=== PATIENT | female | born 1935 | race Caucasian/White ===

== ENCOUNTER → 2016-06-07 | Outpatient (CLI) | payer MEDICARE ==
[2016-06-07 10:44] LABS: Basophils % (A) 1 %; CH 32.2; CHCM 32.4; Eosinophils % (A) 1 %; HCT 44.4 % (34.0-46.0); HGB 14.3 gm/dL (11.4-16.0); Luc # (Auto) 0.14; Luc % (Auto) 3; Lymphocytes # (A) 1.4 k/uL (1.0-4.8); Lymphocytes % (A) 26 %; MCH 32.1 pg (25.0-35.0); MCHC 32.1 g/dL (31.0-37.0); MCV 99.8 fL (80.0-100.0); Mean Platelet Volume 8.6; Monocytes # (A) 0.4 k/uL (0-1.0); Monocytes % (A) 8 %; Neutrophils # (A) 3.2 k/uL (1.3-7.7); Neutrophils % (A) 61 %; RBC 4.45 m/uL (3.80-5.40); RDW 13.8 % (11.5-15.5); WBC 5.2 k/uL (3.8-10.6); WBC (Perox) 5.32
[2016-06-07 11:23] LABS: ALT 27 U/L (9-52); AST 21 U/L (14-36); Alkaline Phosphatase 74 U/L (38-126); Anion Gap 13 mmol/L; Blood Urea Nitrogen 18 mg/dL (7-17); Calcium 9.4 mg/dL (8.4-10.2); Carbon Dioxide 27 mmol/L (22-30); Chloride 99 mmol/L (98-107); Glucose 105 mg/dL (74-99); Non-African American GFR(MDRD) >60 (>60 ml/min/1.73 sqM); Potassium 4.4 mmol/L (3.5-5.1); Sodium 139 mmol/L (137-145); Total Bilirubin 0.7 mg/dL (0.2-1.3); Total Protein 7.4 g/dL (6.3-8.2)
== END | disposition home or self-care (01) ==
LOC: LABWHC1 10:16
PROVIDERS: ATTEND Physician Assistant
DX: E03.9 Hypothyroidism, unspecified (principal); E78.5 Hyperlipidemia, unspecified
CPT/HCPCS: 36415; 80053; 83704; 84439; 84443; 84481; 85025

== ENCOUNTER → 2016-06-19 | Outpatient (CLI) | payer MEDICARE ==
--- NOTE | 2016-06-19 15:13 | XR ---
EXAMINATION TYPE: XR chest 2V DATE OF EXAM: 06/19/2016 3:04 PM COMPARISON: NONE HISTORY: Dyspnea and shortness of breath. TECHNIQUE: Frontal and lateral views of the chest are obtained. FINDINGS: There is chronic emphysematous change without suspicious focal air space opacity or pneumo thorax seen. There is blunting of posterior costophrenic angles suggesting tiny bilateral pleural eff usions The cardiac silhouette size is enlarged, left ventricular dilatation is suspected on lateral v iew. There is atherosclerotic and slightly ectatic thoracic aorta. The osseous structures are deminer alized. There is mild to moderate compression type fracture deformity at roughly L1 level on lateral view presumed chronic. IMPRESSION: Suspect CHF exacerbation as there is cardiomegaly with tiny bilateral pleural effusions, clinical correlation advised. Background of chronic emphysematous change is suspected.
--- NOTE | 2016-06-19 15:27 | US ---
EXAMINATION TYPE: US venous doppler duplex LE DATE OF EXAM: 06/19/2016 2:51 PM COMPARISON: NONE CLINICAL HISTORY: R60.0 EDEMA LOWER EXTREMITY. Bilateral leg swelling x 2 months SIDE PERFORMED: Bilateral TECHNIQUE: The lower extremity deep venous system is examined utilizing real time linear array sonog aline with graded compression, doppler sonography and color-flow sonography. VESSELS IMAGED: External Iliac Vein (EIV) Common Femoral Vein Deep Femoral Vein Greater Saphenous Vein * Femoral Vein Popliteal Vein Small Saphenous Vein * Proximal Calf Veins (* superficial vessels) Right Leg: Appears negative for DVT Left Leg: Appears negative for DVT Grayscale, color doppler, spectral doppler imaging performed of the deep veins of the lower extremiti es. There is normal flow, compressibility, vascular waveforms bilaterally IMPRESSION: No ultrasound evidence for acute DVT in either lower extremity.
--- NOTE | 2016-06-20 09:39 | ECHOF ---
Referral Reason:R06 DYSPNEA MEASUREMENTS -------- HEIGHT: 162.6 cm WEIGHT: 77.6 kg BP: IVSd: 1.1 cm (0.6 - 1.1) LVIDd: 3.6 cm (3.9 - 5.3) LVPWd: 1.1 cm (0.6 - 1.1) IVSs: 1.6 cm LVIDs: 2.8 cm LVPWs: 1.6 cm Ao Diam: 3.4 cm (2.0 - 3.7) AV Cusp: 1.6 cm (1.5 - 2.6) LA Diam: 3.2 cm (2.7 - 3.8) MV EXCURSION: 14.382 mm (> 18.000) MV EF SLOPE: 49 mm/s (70 - 150) EPSS: 0.6 cm MV E Jefferson: 0.81 m/s MV DecT: 125 ms MV A Jefferson: 0.77 m/s MV E/A Ratio: 1.05 RAP: 5.00 mmHg RVSP: 19.79 mmHg FINDINGS -------- Sinus rhythm with extra systolic beats. Very TDS. No apicals,views takin from subcoastals. Left ventricular wall thickness is normal. Overall left ventricular systolic function is normal with, an EF between 55 - 60 %. The right ventricle is normal in size and function. The left atrium is normal in size. The right atrium is normal in size. The aortic valve is trileaflet, and appears structurally normal. No aortic stenosis or regurgitation. There is trace mitral regurgitation. Trace tricuspid regurgitation present. The right ventricular systolic pressure, as measured by Doppler, is 19.79mmHg. Pulmonic valve appears structurally normal. The aortic root size is normal. There is a small, generalized pericardial effusion present. CONCLUSIONS -------- 1. Sinus rhythm with extra systolic beats. 2. Trace tricuspid regurgitation present. 3. The right ventricular systolic pressure, as measured by Doppler, is 19.79mmHg. 4. Pulmonic valve appears structurally normal. 5. The aortic root size is normal. 6. There is a small, generalized pericardial effusion present. 7. Very TDS. No apicals,views takin from subcoastals. 8. Left ventricular wall thickness is normal. 9. Overall left ventricular systolic function is normal with, an EF between 55 - 60 %. 10. The right ventricle is normal in size and function. 11. The left atrium is normal in size. 12. The right atrium is normal in size. 13. The aortic valve is trileaflet, and appears structurally normal. No aortic stenosis or regurgitation. 14. There is trace mitral regurgitation. UNDERWEAR CUTTER: Jelena Domingo RDCS
== END | disposition home or self-care (01) ==
LOC: RADUSMAIN 14:11
PROVIDERS: ATTEND Family Medicine
DX: I08.1 Rheumatic disorders of both mitral and tricuspid valves (principal); I31.3 Pericardial effusion (noninflammatory); R60.0 Localized edema; I51.7 Cardiomegaly; J90 Pleural effusion, not elsewhere classified
CPT/HCPCS: 71020; 93306; 93970

== ENCOUNTER 2017-03-20 06:32 | Day surgery (SDC) | payer MEDICARE ==
[2017-03-09 14:55] VITALS: BMI 29.3
[~2017-03-20 06:32] MED LIST: LACTATED RINGERS 1,000 ML IV SCH; LIDOCAINE 1% 20 ML VIAL (10MG/ML) FOR IV START INTRADERMA PRN; ONDANSETRON 4 MG/2 ML VIAL IVP ONE
[2017-03-20] MEDS: CYCLOPENTOLATE 1% OPHTH SOLN 2 ML BTL OP ONE ×3 (07:03→07:19)
[2017-03-20] MEDS: PHENYLEPHRINE 10% OPHTH DROPS 5 ML BTL OP ONE ×3 (07:06→07:23)
[2017-03-20] MEDS: FLURBIPROFEN 0.03% OPHTH DROPS 2.5 ML BTL OP ONE ×2 (07:09→07:26)
[2017-03-20] MEDS ORDERED: PROPOFOL 10 MG/ML 20 ML VIAL IV ONE (08:18)
[2017-03-20] MEDS ORDERED: TIMOLOL 0.5% OPHTH SOLN (PF) 0.2 ML DROPERETTE LEFT EYE ONE (08:21)
[2017-03-20] MEDS ORDERED: HYALURONATE SODIUM INTRAOCULAR 1 EACH SYRINGE (10MG/ML) INTRAOCULA ONE (08:23)
[2017-03-20] MEDS ORDERED: BALANCED SALT IRRIG SOLN COMB2 15 ML IRRIG.SOLN INTRAOCULA ONE (08:23)
[2017-03-20] MEDS ORDERED: EPINEPHrine (PF) 0.5 ML in BALANCED SALT IRRIG SOLN COMB2 500 ML IRRIGATION ONE (08:25)
--- NOTE | 2017-03-20 08:44 | P.OP ---
Date of Procedure: 03/20/17 Procedure(s) Performed: PREOPERATIVE DIAGNOSIS: Cataract and miosis, left eye. POSTOPERATIVE DIAGNOSIS: Cataract and miosis, left eye. OPERATION: Phacoemulsification cataract, left eye. DESCRIPTION OF PROCEDURE: The patient was taken to the preoperative holding area. Intravenous Propofol was given so as to bring about adequate sedation. The following mixture was given for local anesthesia: 5 mL of 2% lidocaine, 5 mL of 0.75% Marcaine, and 1 mL of Wydase. Approximately 4 mL was injected in the retrobulbar space of the surgical eye. Additional 1 mL was then directed to the temporal area of the surgical eye. This was performed to allow adequate neurological block of the facial muscles. The patient was revived and then taken into the operative room. The patient was prepped and draped in the usual sterile manner for the operative eye. A lid speculum was put into position. The conjunctiva was resected back from the limbus in the 12 o'clock position. Bleeding was controlled with electrocautery. A #69 blade was then used and a half-thickness scleral incision approximately 1-mm posterior to the limbus was made on bare sclera. This was shelved in the clear cornea using a crescent knife. Next a 15-degree blade was used to make a stab incision at the 3 o' clock position at the corneolimbal interface. Keratome blade was then used and the superior wound was extended into the anterior chamber. Viscoelastic was injected into the anterior chamber and to maintain its form. A Maluygin ring was injected and the pupil was stretched into position. Next, a cystotome was used and a continuous anterior capsulotomy was made without difficulty. Hydrodissection using a blunt cannula and BSS was performed. Phaco probe was then employed and a groove extending from 12 to 6 o'clock in the lens was created. A Nicola wand was used through the stab incision so as to perform a divide and conquer technique. Next an irrigation aspiration probe was utilized and any residual cortex was removed from the eye. Again, viscoelastic was injected into the anterior chamber. An Matthew posterior chamber lens implant was placed in the cartridge and injected into the anterior chamber without difficulty. The Sinskey hook was utilized to spin the lens into position and this was again performed without any difficulty. The Maluygin ring was removed from the eye. The irrigation and aspiration probe was again employed and any residual viscoelastic was removed from the eye. Then BSS was injected into the limbal stab incision and the anterior chamber re- inflated. The conjunctiva was reapproximated using electrocautery. One drop of 0.25% Timoptic was placed over the corneal along with TobraDex ophthalmic ointment. Two sterile patches and a Benz eye shield were taped into position. The patient was transported to the recovery room in stable condition. Pathology: none sent Condition: stable Disposition: same day
[2017-03-20 08:48] VITALS: RESP 16
[2017-03-20 09:05] VITALS: BP 167/86; PULSE 77
[2017-03-20] MEDS ORDERED: GENTAMICIN/PREDNISOL AC OPHTH OINT 3.5GM OPHTHALMIC ONE (23:00)
[2017-03-20] MEDS ORDERED: BUPIVACAINE (PF) 0.75% 5 ML, HYALURONIDASE, HUMAN RECOMB 150 UNIT, LIDOCAINE 2% (PF) 10... MISCELLANE ONE ×3 (23:00)
[2017-03-20] MEDS ORDERED: TIMOLOL 0.5% OPHTH SOLN (PF) 0.2 ML DROPERETTE OP ONE (23:00)
== END 2017-03-20 09:19 | disposition home or self-care (01) ==
LOC: OR 06:32
PROVIDERS: ATTEND Ophthalmology
DX: H26.9 Unspecified cataract (principal); H57.03 Miosis; I10 Essential (primary) hypertension; K21.9 Gastro-esophageal reflux disease without esophagitis; R06.02 Shortness of breath; E07.9 Disorder of thyroid, unspecified; Z79.899 Other long term (current) drug therapy
CPT/HCPCS: 66984; V2632; J3470; J2001; J0171; J2704

== ENCOUNTER → 2017-09-19 | Outpatient (CLI) | payer MEDICARE ==
[2017-09-19 11:15] LABS: Albumin 4.1 g/dL (3.5-5.0); Calcium 9.2 mg/dL (8.4-10.2); Potassium 4.6 mmol/L (3.5-5.1); Total Bilirubin 0.4 mg/dL (0.2-1.3); Total Protein 6.6 g/dL (6.3-8.2)
== END | disposition home or self-care (01) ==
LOC: LABWHC1 10:08
PROVIDERS: ATTEND Internal Medicine Interventional Cardiology
DX: E78.2 Mixed hyperlipidemia (principal); R06.09 Other forms of dyspnea
CPT/HCPCS: 36415; 80053; 80061; 83880

== ENCOUNTER → 2019-12-24 | Outpatient (CLI) | payer MEDICARE ==
[2019-12-24 12:49] LABS: Basophils % (A) 0 %; Eosinophils % (A) 1 %; HCT 41.8 % (34.0-46.0); HGB 13.3 gm/dL (11.4-16.0); Lymphocytes # (A) 1.2 k/uL (1.0-4.8); Lymphocytes % (A) 23 %; MCH 32.2 pg (25.0-35.0); MCHC 31.8 g/dL (31.0-37.0); MCV 101.2 fL (80.0-100.0); Mean Platelet Volume 9.6; Monocytes # (A) 0.4 k/uL (0-1.0); Monocytes % (A) 8 %; Neutrophils # (A) 3.4 k/uL (1.3-7.7); Neutrophils % (A) 65 %; Platelet Count 162 k/uL (150-450); RBC 4.13 m/uL (3.80-5.40); RDW 12.5 % (11.5-15.5); WBC 5.3 k/uL (3.8-10.6)
[2019-12-24 20:28] LABS: African American GFR (CKD) 59.1 (60.0-200.0); Albumin 4.4 g/dL (3.80-4.90); Albumin/Globulin Ratio 1.83 (1.60-3.17); Anion Gap 9.4 mmol/L (4.00-12.00); Calcium 9.4 mg/dL (8.7-10.3); Carbon Dioxide 27.6 mmol/L (21.6-31.8); Chol/HDL Ratio 2.82; Globulin 2.4 g/dL (1.6-3.3); LDL Cholesterol,Calculated 103.4 mg/dL (0.0-131.0); Potassium 5.3 mmol/L (3.5-5.5); Total Bilirubin 0.6 mg/dL (0.2-1.2); Total Protein 6.8 g/dL (6.2-8.2); VLDL Calculation 29.6 mg/dL (5.00-40.00)
[2019-12-24 20:36] LABS: T4, Free (Free Thyroxine) 1.8 ng/dL (0.80-1.80)
== END ==
LOC: LABWHC1 11:41
PROVIDERS: ATTEND Family Medicine
DX: E78.5 Hyperlipidemia, unspecified (principal); E03.9 Hypothyroidism, unspecified
CPT/HCPCS: 36415; 80053; 80061; 84439; 84443; 84481; 85025

== ENCOUNTER → 2021-07-12 | Outpatient (CLI) | payer MEDICARE ==
--- NOTE | 2021-07-12 16:48 | XR ---
EXAMINATION TYPE: XR chest 2V DATE OF EXAM: 07/12/2021 COMPARISON: 06/19/2016 HISTORY: 86-year-old female R06.09, dyspnea, shortness of breath TECHNIQUE: Frontal and lateral views FINDINGS: The heart is enlarged especially the left atrium which is distended back to project over the her aspe ct of the spine. Aorta and pulmonary vasculature within normal limits. Hyperinflation. Trace pleural effusions redemonstrated. Stable anterior wedge deformity near the thoracolumbar junction. There appe ars to be a calcified oil cyst within the breast on the lateral view. Unusual vertical lucency involv ing the inferior aspect of these right scapula. IMPRESSION: 1. Left atrial dilatation apparent on the lateral view. 2. COPD. Blunted costophrenic angles remain unchanged from 2017. This could be secondary to trace eff usions or pleural parenchymal scarring. 3. Vertically oriented lucency inferior right scapula could be projectional artifact. Correlate for a ny history of injury or focal pain here.
== END | disposition home or self-care (01) ==
LOC: RADXRMAIN 08:37
PROVIDERS: ATTEND Family Medicine
DX: I51.7 Cardiomegaly (principal); J44.9 Chronic obstructive pulmonary disease, unspecified
CPT/HCPCS: 71046

== ENCOUNTER → 2022-08-07 | Outpatient (CLI) | payer MEDICARE | END | disposition home or self-care (01) | LOC: LABPAT 10:09 | PROVIDERS: ATTEND Orthopaedic Surgery | DX: Z01.812 Encounter for preprocedural laboratory examination (principal); Z22.322 Carrier or suspected carrier of Methicillin resistant Staphylococcus aureus; M16.12 Unilateral primary osteoarthritis, left hip | CPT/HCPCS: 87070 ==

== ENCOUNTER → 2022-08-11 | Outpatient (CLI) | payer MEDICARE ==
[2022-08-11 15:42] LABS: Basophils # (A) 0.02 X 10*3/uL (0.00-0.10); Basophils % (A) 0.4 %; Eosinophils # (A) 0.04 X 10*3/uL (0.04-0.35); Eosinophils % (A) 0.7 %; HCT 39.6 % (37.2-46.3); HGB 12.3 d/dL (12.0-15.0); Lymphocytes % (A) 24.9 %; MCH 31.5 pg (27.0-32.0); MCHC 31.1 d/dL (32.0-37.0); MCV 101.3 FL (80.0-97.0); Monocytes % (A) 10.7 %; NRBC Per 100 WBC 0 X 10*3/uL (0.00-0.01); Neutrophils # (A) 3.49 X 10*3/uL (1.80-7.70); Neutrophils % (A) 62.1 %; Platelet Count 162 X 10*3/uL (140-440); RBC 3.91 X 10*6/uL (4.10-5.20); RDW 13.2 % (11.5-14.5); WBC 5.62 X 10*3/uL (4.50-10.00)
[2022-08-11 16:01] LABS: BUN/Creat Ratio 25.67 Ratio (12.00-20.00); Blood Urea Nitrogen 30.8 mg/dL (9.0-27.0); Calcium 9.4 mg/dL (8.7-10.3); Carbon Dioxide 22.4 mmol/L (21.6-31.8); Chloride 102 mmol/L (96-109); Glucose 121 mg/dL (70-110); Potassium 4.8 mmol/L (3.5-5.5); Sodium 141 mmol/L (135-145)
[2022-08-11 17:17] LABS: INR <0.93 sec (0.93-1.11); Prothrombin Time 10.3 sec (9.9-11.9)
== END | disposition home or self-care (01) ==
LOC: LABPAT 09:31
PROVIDERS: ATTEND Orthopaedic Surgery
DX: Z01.812 Encounter for preprocedural laboratory examination (principal); Z51.81 Encounter for therapeutic drug level monitoring; Z79.899 Other long term (current) drug therapy
CPT/HCPCS: 36415; 80048; 85025; 85610

== ENCOUNTER → 2022-08-11 | Outpatient (CLI) | payer MEDICARE ==
--- NOTE | 2022-08-11 15:43 | XR ---
EXAMINATION TYPE: XR chest 2V DATE OF EXAM: 08/11/2022 COMPARISON: 07/12/2021 INDICATION: Chronic obstructive pulmonary disease TECHNIQUE: Frontal and lateral views of the chest are obtained. FINDINGS: The heart size is mildly prominent. The pulmonary vasculature is normal. The lungs are clear. IMPRESSION: 1. No acute pulmonary process. 2. COPD 3. Mild cardiomegaly
== END | disposition home or self-care (01) ==
LOC: RADXRWHC 09:47
PROVIDERS: ATTEND Family Medicine
DX: J44.9 Chronic obstructive pulmonary disease, unspecified (principal); I51.7 Cardiomegaly
CPT/HCPCS: 71046

== ENCOUNTER 2022-08-14 05:44 | Observation (INO) | payer MEDICARE ==
--- NOTE | 2022-08-13 15:10 | HP ---
HISTORY AND PHYSICAL DATE OF SURGERY: 08/14/2022. HISTORY OF PRESENT ILLNESS: David Ni is an 87-year-old patient seen with symptomatic severe left hip osteoarthritis. We discussed options for treatment. She elected to proceed with direct anterior left total hip arthroplasty. Consent regarding the procedure was obtained. Medical clearance was provided by Dr. Hayes Vogel, cardiac clearance by Dr. Kirkpatrick. PAST MEDICAL HISTORY: Hypertension, hypothyroidism, cardiovascular disease. PAST SURGICAL HISTORY: Thyroidectomy. DAILY MEDICATIONS: 1. Furosemide. 2. Levothyroxine. 3. Lisinopril. 4. Potassium. 5. Trelegy. ALLERGIES: None. SOCIAL HISTORY: She denies tobacco use. PHYSICAL EXAMINATION: Evaluation of left hip, she has very limited range of motion with severe pain. Positive hip impingement sign. Straight-leg raise is negative. Her distal neurovascular exam is intact. RADIOGRAPHS: Of the left hip reveal severe osteoarthritic changes. IMPRESSION: 1. Left hip osteoarthritis. 2. Hypertension. 3. Hypothyroidism. PLAN: Direct anterior approach left total hip arthroplasty. MMODL / IJN: [id number] /
[~2022-08-14 05:44] MED LIST changes: +ACETAMINOPHEN TAB 500 MG TAB PO PRN; -LACTATED RINGERS 1,000 ML IV SCH; -LIDOCAINE 1% 20 ML VIAL (10MG/ML) FOR IV START INTRADERMA PRN; +MELOXICAM 7.5 MG TAB PO PRN; -ONDANSETRON 4 MG/2 ML VIAL IVP ONE; +TRANEXAMIC 1,000 MG/100ML-NACL 1,000 MG in SALINE 1 100ML.BAG IVPB PRN
[2022-08-14] MEDS ORDERED: ONDANSETRON 4 MG/2 ML VIAL IVP ONE (06:05)
[2022-08-14] MEDS ORDERED: HYDROmorphone 0.5 MG/0.5 ML SYRINGE IVP PRN ×4 (06:05→08:54)
[2022-08-14] MEDS ORDERED: LIDOCAINE 1% (10MG/ML) FOR IV START INTRADERMA PRN (06:05)
[2022-08-14] MEDS: LACTATED RINGERS 1,000 ML IV SCH (07:08)
[2022-08-14] MEDS ORDERED: MIDAZOLAM 2 MG/2 ML VIAL IVP ONE (07:25)
[2022-08-14] MEDS ORDERED: SODIUM CHLORIDE 0.9% (PF) 10 ML VIAL ONE (07:35)
[2022-08-14] MEDS ORDERED: PHENYLEPHRINE-0.9% NACL SYG 1,000 MCG/10 ML SYRINGE ONE (07:35)
[2022-08-14] MEDS ORDERED: MIDAZOLAM 2 MG/2 ML VIAL ONE (07:35)
[2022-08-14] MEDS ORDERED: PROPOFOL 10 MG/ML 20 ML VIAL IV ONE (07:35)
[2022-08-14] MEDS ORDERED: ROPIVACAINE 5 MG/ML 30 ML VIAL ONE (07:35)
[2022-08-14] MEDS ORDERED: TRANEXAMIC 1,000 MG/100ML-NACL PREMIX BAG ONE (07:35)
[2022-08-14] MEDS ORDERED: LIDOCAINE 2% INJ 20 MG/ML (2 ML VIAL) ONE (07:35)
[2022-08-14] MEDS ORDERED: fentaNYL (PF) 50 MCG/ML 2 ML AMP ONE (07:35)
[2022-08-14] MEDS ORDERED: ceFAZolin 1,000 MG in SODIUM CHLORIDE 0.9% 1,000 ML IRRIGATION ONE (08:00)
[2022-08-14] MEDS ORDERED: NALOXONE 0.4 MG/ML 1 ML VIAL IV PRN (08:54)
[2022-08-14] MEDS ORDERED: ONDANSETRON 4 MG/2 ML VIAL IVP PRN (08:54)
--- NOTE | 2022-08-14 08:54 | P.OP ---
Date of Procedure: 08/14/22 Preoperative Diagnosis: Left hip osteoarthritis Postoperative Diagnosis: Left hip osteoarthritis Procedure(s) Performed: Direct anterior left total hip arthroplasty Implants: 1. Depuy Corail size 135 degrees standard collar press-fit femoral stem 2. Depuy Olga 52 mm multi hole press-fit acetabular shell 3. Depuy Olga neutral polyethylene acetabular liner 36 mm ID 52 mm OD 4. Biolox delta ceramic femoral head +1.5 36 mm Anesthesia: spinal Surgeon: Nick Mcdaniel Golf Instructor #1: Tee Rojas Estimated Blood Loss (ml): 50 Pathology: none sent Condition: stable Disposition: PACU Indications for Procedure: 87 -year-old patient seen with symptomatic left hip osteoarthritis. After having treatment options discussed, patient elected to proceed with direct anterior left total hip arthroplasty. Operative Findings: See description of procedure Description of Procedure: The patient was taken to the operative suite. Patient underwent a spinal anesthetic by the department of anesthesia. Patient was then transferred to the Thor table. Patient was given preoperative IV antibiotics and TXA. Both lower extremities were placed in standard leg spars. The hip was then prepped and draped in the normal sterile orthopedic fashion. A standard anterior incision was made beginning 3 cm lateral and 1 cm distal to the ASIS extending 10 cm. Dissection was then carried down through the subcutaneous soft tissues down to the fascia overlying the tensor fascia medardo. An incision was now made through the fascia. Careful dissection was taken down exposing the tensor fascia medardo muscle. A Cobra retractor was now placed along the medial femoral neck and a second one along the lateral femoral neck. The venous circumflex vessels were now identified, cauterized and clipped. We identified the anterior hip capsule. An incision was made through the hip capsule along the lateral border. I performed a partial anterior capsulectomy. Retractors were now placed around the femoral neck itself. A femoral neck cut was now made with a sagittal saw. It was completed with an osteotome at the lateral neck area. The femoral head was now removed without difficulty. The extremity was now rotated to 60 of external rotation. It was locked in position. Residual labrum was now debrided out. Serial reaming was performed of the acetabulum while Tee patterson holding an anterior retractor for exposure. Once we reached the appropriate size and a trial was position and fit nicely. The appropriate size was now chosen opened and made available. It was introduced into the acetabulum without difficulty. The C-arm/fluoroscopy was now brought into the operative field. We made sure we had a true AP pelvic view. We now under direct C-arm/fluoroscopy introduced into the acetabular component with appropriate version and inclination. I held the cup in appropriate position well Raphael SAMUELS used a mallet to seat the acetabular component. I noted the component now to be well seated and stable. Acetabular cup introduce her was removed. The C-arm was pulled back. An appropriate liner was introduced and clicked into position. It was felt to be stable. At this point retractors were removed. The extremity was now placed into 140 external rotation with no traction. The leg was now dropped to the ground and adducted. Appropriate retractors were now positioned along the proximal femur. We also placed our femoral look into position. Additional capsular releasing was performed to gain access to the proximal femur. We now used a box osteotome. A canal finder was now utilized. Serial broaching was now performed with the assistance of Tee SAMUELS tapping the broaches down with a mallet while held the broach in appropriate rotation and position. This was done until we reached the appropriate size with good overall rotational stability. Appropriate calcar planing was performed. A trial head/neck was placed into position. The hip was now reduced. The C- arm/fluoroscopy was brought back into the operative field. I obtained an AP pelvis was demonstrated adequate leg length alignment. The trial components appeared adequately sized and positioned. The C-arm/fluoroscopy was pulled back. Retractors were repositioned and the hip was dislocated. The leg was again taken down to the ground and adducted. Appropriate retractors were repositioned as well as the femoral hook. All trial components were removed. The femoral implant was opened along with the femoral head. The femoral implant was introduced on the appropriate handle into our pre-broached area. I held the component position while Tee SAMUELS used a mallet to seat the femoral component. The femoral component was now noted to be well seated and stable.. The femoral head was introduced with good positioning and fixation noted. Retractors were now removed. The hip was now reduced. There appeared be good positioning of the hip confirmed on intraoperative fluoroscopy. Spot films were obtained to document this. A second gram of TXA was given. Bipolar cautery had been utilized intermittently through the procedure for hemostasis. The wound was irrigated copiously with pulse lavage mechanical irrigation. The fascia was repaired with Vicryl suture. The subcutaneous soft tissues were repaired in layers with Vicryl suture. The skin was approximated with pernio/Dermabond. Sterile dressings were applied. Patient was then awakened, transferred to a bed and taken to recovery in stable condition. Tee SAMUELS assisted with the complex procedure.
--- NOTE | 2022-08-14 08:55 | FL ---
Fluoroscopy History: LEFT ANTERIOR HIP 13 Sec FL .8897 DAP dose
--- NOTE | 2022-08-14 08:56 | XR ---
EXAMINATION TYPE: XR Hip Limited LT DATE OF EXAM: 08/14/2022 CLINICAL HISTORY: Postoperative evaluation TECHNIQUE: Single portable view of the left hip was submitted. FINDINGS: Noted are changes of total hip arthroplasty with femoral and acetabular components appearin g well seated. Alignment is anatomic. Postsurgical soft tissue changes are evident. IMPRESSION: Satisfactory postoperative alignment
--- NOTE | 2022-08-14 09:16 | P.ANPRN ---
Procedure Note - Anesthesia - Nerve Block Performed Left Zeeshan Time Out Performed: Yes (:) Date of Procedure: 08/14/22 Procedure Start Time: Procedure Stop Time: Location of Patient: PreOp Indication: Acute Post-Operative Pain, Requested by Surgeon (Dr Mcdaniel) Sedation Type: Sedate with meaningful contact maintained Preparation: Sterile Prep Position: Supine Catheter: None Needle Types: Pajunk Needle Gauge: 21 Ultrasound used to visualize needle placement: Yes Ultrasound used to observe medication spread: Yes Injectate: 0.5% Ropivacaine (see comment for volume) (20cc +5cc PF Normal saline) Blood Aspirated: No Pain Paresthesia on Injection Noted: No Resistance on Injection: Normal Image Stored and Saved: Yes Events: Uneventful and Well Tolerated
[2022-08-14] MEDS ORDERED: PHENYLEPHRINE 10 MG/ML VIAL IV ONE (09:33)
[2022-08-14] MEDS ORDERED: LACTATED RINGERS 1,000 ML IV ONE ×2 (09:45)
[2022-08-14] MEDS: SODIUM CHLORIDE 0.9% 1,000 ML IV SCH (15:40)
[2022-08-14] MEDS ORDERED: IPRATROPIUM 0.5 MG/2.5 ML NEBU INHALATION SCH (16:00)
[2022-08-14] MEDS: HYDROcodone/APAP 5-325MG 1 EACH TAB PO PRN (16:15)
[2022-08-14] MEDS: FUROSEMIDE 20 MG TAB PO SCH (16:15)
[2022-08-14] MEDS: POTASSIUM CHLORIDE ER 10 MEQ TAB.ER.PRT PO SCH (19:56)
[2022-08-14] MEDS: SENNOSIDES-DOCUSATE SODIUM 1 EACH TAB PO SCH (19:56)
[2022-08-14] MEDS ORDERED: SYMBICORT 80-4.5 MCG INHALER INHALATION SCH (20:00)
--- NOTE | 2022-08-15 00:13 | CONS ---
CONSULTATION REASON FOR CONSULTATION: Advice regarding hypertension and multiple medical issues requested by Orthopedic. HISTORY OF PRESENT ILLNESS: This is an 87-year-old woman with a past history of multiple medical problems, hypertension, and hypothyroidism, who underwent total anterior hip arthroplasty on the left side because of severe DJD. There is no history of any fever or rigors. No history of headache, loss of consciousness, shortness of breath. No history of any significant pain PAST MEDICAL HISTORY: Reviewed include hypertension, DJD. Rest of the history and rest of the chart are also reviewed. HOME MEDICATIONS: Reviewed include Lasix. Doses and rest of the medications noted. Potassium. ALLERGIES: None. FAMILY HISTORY: No history of heart disease or strokes in the family. SOCIAL HISTORY: No history of smoking, occasional alcohol intake. REVIEW OF SYSTEMS: A 14-point review of systems is negative except as mentioned. PHYSICAL EXAMINATION: VITAL SIGNS: Pulse is 78, blood pressure 117/68, respiratory rate 16. HEENT: Conjunctivae normal. NECK: No jugular venous distention. CARDIOVASCULAR: S1, S2 muffled. RESPIRATIONS: Breath sounds diminished at the bases. No rhonchi. No crackles. ABDOMEN: Soft, nontender. LEGS: Status post left hip arthroplasty. NERVOUS SYSTEM: Nonfocal. LABORATORY DATA: Not available. ASSESSMENT: 1. Status post left hip arthroplasty. 2. Hypertension. 3. History of degenerative joint disease. 4. Hypothyroidism. 5. Multiple medical issues. RECOMMENDATIONS: Recommend to continue current medications. Continue symptomatic treatment. Resume the home medication. Monitor potassium and creatinine closely, otherwise also recommend DVT prophylaxis. Rest of the recommendations per Orthopedic Surgery and Pain Management. See orders for further details. Further recommendations to follow. Discussed with the patient. MMODL / IJN: [id number] / ROSENDO
[2022-08-15] MEDS: LEVOTHYROXINE 75 MCG TAB PO SCH (04:56)
[2022-08-15] MEDS: SODIUM CHLORIDE 0.9% 1,000 ML IV SCH ×2 (04:57→22:15)
[2022-08-15] MEDS: LACTATED RINGERS 1,000 ML IV SCH ×2 (06:19→22:16)
[2022-08-15] MEDS: POTASSIUM CHLORIDE ER 10 MEQ TAB.ER.PRT PO SCH ×2 (08:12→20:41)
[2022-08-15] MEDS: FUROSEMIDE 20 MG TAB PO SCH (08:12)
[2022-08-15] MEDS: FAMOTIDINE 20 MG TAB PO SCH (08:12)
[2022-08-15] MEDS: lisinopriL 10 MG TAB PO SCH (08:12)
[2022-08-15] MEDS: ENOXAPARIN 40 MG/0.4 ML SYRINGE SQ SCH (08:14)
[2022-08-15] MEDS: Trelegy Ellipta (fluticasone 100 mcg/umeclidinium 62.5 cmg/vilanterol 25 mcg) INHALATION SCH (08:17)
[2022-08-15] MEDS: HYDROcodone/APAP 5-325MG 1 EACH TAB PO PRN ×2 (11:58)
--- NOTE | 2022-08-15 12:28 | PN ---
PROGRESS NOTE DATE OF SERVICE: 08/15/2022 SUBJECTIVE: This is an 87-year-old woman who was admitted after left hip arthroplasty. She is still complaining of some hip pain. No chest pain, no palpitations, no fever. OBJECTIVE: VITAL SIGNS: Pulse is 92, blood pressure 133/82, and respirations 16. CHEST: Clear to auscultation. CARDIOVASCULAR: S1, S2. ABDOMEN: Soft. LEGS: Status post surgery. LABORATORY DATA: Not available. ASSESSMENT: 1. Status post left hip arthroplasty. 2. Hypertension. 3. History of DJD. 4. Hypothyroidism. 5. Multiple medical issues. RECOMMENDATIONS AND DISCUSSION: I recommended to continue current medications, continue symptomatic treatment. DVT prophylaxis. Closely follow with Orthopedic surgery. Pain management. Further recommendations to follow. MMODL / IJN: [id number] /
--- NOTE | 2022-08-15 12:29 | P.PN ---
Subjective Progress Note Date: 08/15/22 Principal diagnosis: Right hip osteoarthritis Patient was seen at bedside this morning sitting up in chair with legs elevated. Patient says she did work with physical therapy this morning and walked around the room little bit. Patient says she is hoping to go to rehab upon discharge. Patient says she does live at home alone in a two-story house. She says there are 13 steps up to the second floor where her bedroom is. Patient normally ambulates with a cane at home. Patient also does have a couple steps onto main level. Patient feels that she'll have difficulty making food on her own at home and standing for long periods of time to make meals. Patient also feels that she would have a difficult time getting to the bathroom on her own if she were to go home. Therefore, patient does feel that rehab is best option at this time. Patient says she has urinated since surgery yesterday. Patient says she has not had bowel movement yet, however, patient says she has been passing gas. Patient denies chest pain, fever, shortness of breath, nausea, vomiting, change in vision, loss of bowel/bladder control. Objective - Vital Signs Vital signs: Vital Signs Temp 98.1 F 08/15/22 07:35 Pulse 94 08/15/22 07:48 Resp 17 08/15/22 07:48 BP 133/82 08/15/22 07:35 Pulse Ox 91 L 08/15/22 07:35 FiO2 Intake & Output 08/14/22 08/15/22 08/15/22 18:59 06:59 18:59 Intake Total 1351 830 Output Total 50 Balance 1301 830 Weight 74.5 kg Intake: IV 1351 Intake, IV Titration 650 Amount Sodium Chloride 0.9% 1, 600 000 ml @ 50 mls/hr IV . Q20H DAGMAR Rx#:[id number] ceFAZolin 2 gm In Sodium 50 Chloride 0.9% 50 ml @ 100 mls/hr IVPB Q8HR DAGMAR Rx# :[id number] Oral 180 Output: Estimated Blood Loss 50 Other: # Voids 2 1 - Exam Right hip: Incision is clean, dry, and intact. The silver foam dressing is in good condition. There is minimal soft tissue swelling and ecchymosis surrounding the medial and lateral aspects of the incision. Calf is soft, no tenderness with palpation. Plantar flexion, dorsiflexion, EHL, FHL are intact. Sensory exam to light touch throughout the extremity is intact, dorsal pedis pulses 2+. Assessment and Plan Assessment: 1. Right hip osteoarthritis - Postoperative day 1 status post right total hip arthroplasty Plan: 1. Right hip osteoarthritis - patient stable at bedside this morning. Patient just completed working with physical therapy. Prescription for walker sign. At this time. The patient's age and living home alone, we do recommend patient to go to rehab upon discharge. Continue with pain medication as needed. PT/OT daily. We will continue to follow patient during her stay in hospital. Plan for discharge to rehab once authorization is completed. 2. Appreciate medical management 3. Pain management - [facility] 4. DVT prophylaxis - Lovenox 5. GI prophylaxis - senna 6. PT/OT - weightbearing as tolerated with walker and assistance 7. Encourage incentive spirometer use 8. Discharge planning - Plan for discharge to rehab once authorization is completed. Time with Patient: Less than 30
[2022-08-15 14:06] LABS: Basophils # (A) 0.02 X 10*3/uL (0.00-0.10); Basophils % (A) 0.2 %; Eosinophils # (A) 0.01 X 10*3/uL (0.04-0.35); Eosinophils % (A) 0.1 %; HCT 33.2 % (37.2-46.3); Lymphocytes # (A) 0.73 X 10*3/uL (0.90-5.00); Lymphocytes % (A) 8.8 %; MCHC 33.1 d/dL (32.0-37.0); MCV 99.7 FL (80.0-97.0); Mean Platelet Volume 11.8 FL (9.5-12.2); Monocytes # (A) 0.99 X 10*3/uL (0.20-1.00); Monocytes % (A) 11.9 %; NRBC Per 100 WBC 0 X 10*3/uL (0.00-0.01); Neutrophils # (A) 6.51 X 10*3/uL (1.80-7.70); Neutrophils % (A) 78.4 %; Platelet Count 138 X 10*3/uL (140-440); RBC 3.33 X 10*6/uL (4.10-5.20); RDW 13.2 % (11.5-14.5); WBC 8.31 X 10*3/uL (4.50-10.00)
[2022-08-15] MEDS: SENNOSIDES-DOCUSATE SODIUM 1 EACH TAB PO SCH (20:41)
[2022-08-16 05:20] LABS: BUN/Creat Ratio 17.75 Ratio (12.00-20.00); Blood Urea Nitrogen 28.4 mg/dL (9.0-27.0); Glucose 124 mg/dL (70-110)
[2022-08-16 05:21] LABS: Calcium 8.6 mg/dL (8.7-10.3); Carbon Dioxide 22.8 mmol/L (21.6-31.8); Chloride 104 mmol/L (96-109); Potassium 5.1 mmol/L (3.5-5.5); Sodium 139 mmol/L (135-145)
[2022-08-16] MEDS: LEVOTHYROXINE 75 MCG TAB PO SCH (06:04)
[2022-08-16] MEDS: ENOXAPARIN 40 MG/0.4 ML SYRINGE SQ SCH (07:56)
[2022-08-16] MEDS: POTASSIUM CHLORIDE ER 10 MEQ TAB.ER.PRT PO SCH ×2 (07:57→21:10)
[2022-08-16] MEDS: FAMOTIDINE 20 MG TAB PO SCH (07:57)
[2022-08-16] MEDS: lisinopriL 10 MG TAB PO SCH (07:57)
[2022-08-16] MEDS: FUROSEMIDE 20 MG TAB PO SCH (07:57)
[2022-08-16] MEDS: Trelegy Ellipta (fluticasone 100 mcg/umeclidinium 62.5 cmg/vilanterol 25 mcg) INHALATION SCH (08:05)
[2022-08-16] MEDS: HYDROcodone/APAP 5-325MG 1 EACH TAB PO PRN (11:48)
[2022-08-16 12:15] LABS: Appearance,Urine Cloudy (Clear); Bacteria,Urine Rare /hpf; Bilirubin,Urine Negative (Negative); Blood,Urine Negative (Negative); Color,Urine Yellow; Glucose,Urine (UA) Negative (Negative); Hyaline Casts,Urine 1 /lpf (0-2); Ketones,Urine Negative (Negative); Leukocyte Esterase,Urine Negative (Negative); Mucus,Urine Rare /hpf; Nitrite,Urine Negative (Negative); Protein,Urine Negative (Negative); Specific Gravity,Urine 1.015 (1.001-1.035); Squamous Epithelial Cell,Urine 11 /hpf (0-4); Urobilinogen,Urine <2.0 mg/dL (<2.0); WBC,Urine 1 /hpf (0-5)
--- NOTE | 2022-08-16 12:52 | PN ---
PROGRESS NOTE DATE OF SERVICE: 08/16/2022 SUBJECTIVE: This is an 87-year-old woman who was admitted with left hip arthroplasty, is improving significantly. No chest pain, no palpitations, no fever. OBJECTIVE: VITAL SIGNS: Pulse 80, blood pressure n, respirations 15. HEENT: Conjunctivae normal. NECK: No jugular venous distention. CARDIOVASCULAR: S1, S2 muffled. ABDOMEN: Soft. Nondistended. LABORATORY DATA: Reviewed. ASSESSMENT: 1. Status post left hip arthroplasty. 2. Hypertension. 3. Rule out UTI. 4. History of DJD. 5. Hypothyroidism. 6. Multiple medical issues. RECOMMENDATIONS AND DISCUSSION: Recommended to continue current management, continue symptomatic treatment. Otherwise, I would recommend to repeat labs and UA also. Further recommendations to follow. MMODL / IJN: [id number] / MTDThierry
--- NOTE | 2022-08-16 15:01 | P.PN ---
Subjective Progress Note Date: 08/16/22 Principal diagnosis: Right hip osteoarthritis Patient was seen at bedside this morning lying in semirecumbent position in bed. Patient says she did do well yesterday. She says her pain is easing. Patient says she has urinated since surgery. Patient says she has not had bowel m ovement yet, however, patient says she has been passing gas. Patient denies chest pain, fever, shortness breath, nausea, vomiting, change in vision, loss of bowel/bladder control. Objective - Vital Signs Vital signs: Vital Signs Temp 99.3 F 08/16/22 07:08 Pulse 83 08/16/22 07:08 Resp 15 08/16/22 07:08 BP 117/70 08/16/22 07:08 Pulse Ox 98 08/16/22 07:08 FiO2 Intake & Output 08/15/22 08/16/22 08/16/22 18:59 06:59 18:59 Other: Voiding Method Toilet # Voids 1 1 - Exam Right hip: Incision is clean, dry, and intact. The silver foam dressing is in good condition. There is minimal soft tissue swelling and ecchymosis surrounding the medial and lateral aspects of the incision. Calf is soft, no tenderness with palpation. Plantar flexion, dorsiflexion, EHL, FHL are intact. Sensory exam to light touch throughout the extremity is intact, dorsal pedis pulses 2+. - Labs CBC & Chem 7: 08/15/22 07:05 08/15/22 07:05 Labs: Abnormal Lab Results - Last 24 Hours (Table) 08/15/22 08/15/22 Range/Units 07:05 07:05 RBC 3.33 L (4.10-5.20) X 10*6/uL Hgb 11.0 L (12.0-15.0) d/dL Hct 33.2 L (37.2-46.3) % MCV 99.7 H (80.0-97.0) FL MCH 33.0 H (27.0-32.0) pg Plt Count 138 L (140-440) X 10*3/uL Lymphocytes # 0.73 L (0.90-5.00) X 10*3/uL Eosinophils # 0.01 L (0.04-0.35) X 10*3/uL Anion Gap 12.20 H (4.00-12.00) mmol/L BUN 28.4 H (9.0-27.0) mg/dL Creatinine 1.6 H (0.6-1.5) mg/dL Est GFR (CKD-EPI) 31 L (>=60) Glucose 124 H (70-110) mg/dL Calcium 8.6 L (8.7-10.3) mg/dL Assessment and Plan Assessment: 1. Right hip osteoarthritis - Postoperative day 2 status post right total hip arthroplasty Plan: 1. Right hip osteoarthritis - patient stable at bedside this morning. Considering the patient's age and living home alone, we do recommend patient to go to rehab upon discharge. Case went to peer to peer and patient denied for [facility]. We will keep patient one more night for additional PT/OT and pain control. Continue with pain medication as needed. PT/OT daily. We will continue to follow patient during her stay in hospital. Plan for discharge home with health services tmrw. 2. Appreciate medical management 3. Pain management - [place] 4. DVT prophylaxis - Lovenox 5. GI prophylaxis - senna 6. PT/OT - weightbearing as tolerated with walker and assistance 7. Encourage incentive spirometer use 8. Discharge planning - Plan for discharge home with health services tmrw. Time with Patient: Less than 30
[2022-08-16 15:36] VITALS: RESP 16
[2022-08-16] MEDS: SODIUM CHLORIDE 0.9% 1,000 ML IV SCH (21:08)
[2022-08-16] MEDS: SENNOSIDES-DOCUSATE SODIUM 1 EACH TAB PO SCH (21:10)
[2022-08-17] MEDS: LACTATED RINGERS 1,000 ML IV SCH (04:58)
[2022-08-17] MEDS: LEVOTHYROXINE 75 MCG TAB PO SCH (05:27)
[2022-08-17 07:58] VITALS: BP 120/67; PULSE 83; TEMP 98.6
[2022-08-17] MEDS: FAMOTIDINE 20 MG TAB PO SCH (08:23)
[2022-08-17] MEDS: lisinopriL 10 MG TAB PO SCH (08:23)
[2022-08-17] MEDS: FUROSEMIDE 20 MG TAB PO SCH (08:23)
[2022-08-17] MEDS: POTASSIUM CHLORIDE ER 10 MEQ TAB.ER.PRT PO SCH (08:24)
[2022-08-17] MEDS: Trelegy Ellipta (fluticasone 100 mcg/umeclidinium 62.5 cmg/vilanterol 25 mcg) INHALATION SCH (08:39)
[2022-08-17] MEDS ORDERED: ENOXAPARIN 30 MG/0.3 ML SYRINGE SQ SCH (09:00)
--- NOTE | 2022-08-17 09:06 | P.PN ---
Subjective Progress Note Date: 08/17/22 Principal diagnosis: Right hip osteoarthritis Patient was seen at bedside this morning lying in semirecumbent position in bed. She says her pain is easing. Patient says she has urinated since surgery. Patient says she has not had bowel movement yet, however, patient says she has been passing gas. Patient says her sons have helped her house ready so she can go home, since she was denied to go to rehab yesterday. Patient denies chest pain, fever, shortness breath, nausea, vomiting, change in vision, loss of bowel/bladder control. Objective - Vital Signs Vital signs: Vital Signs Temp 98.6 F 08/17/22 07:23 Pulse 83 08/17/22 07:23 Resp 16 08/17/22 07:23 BP 120/67 08/17/22 07:23 Pulse Ox 95 08/17/22 07:23 FiO2 Intake & Output 08/16/22 08/17/22 08/17/22 18:59 06:59 18:59 Other: Voiding Method Toilet # Voids 3 2 - Exam Right hip: Incision is clean, dry, and intact. The silver foam dressing is in good con dition. There is minimal soft tissue swelling and ecchymosis surrounding the medial and lateral aspects of the incision. Calf is soft, no tenderness with palpation. Plantar flexion, dorsiflexion, EHL, FHL are intact. Sensory exam to light touch throughout the extremity is intact, dorsal pedis pulses 2+. - Labs CBC & Chem 7: 08/15/22 07:05 08/15/22 07:05 Labs: Abnormal Lab Results - Last 24 Hours (Table) 08/16/22 Range/Units 12:00 Urine Appearance Cloudy H (Clear) Ur Squamous Epith Cells 11 H (0-4) /hpf Urine Bacteria Rare H (None) /hpf Urine Mucus Rare H (None) /hpf Assessment and Plan Assessment: 1. Right hip osteoarthritis - Postoperative day 3 status post right total hip arthroplasty Plan: 1. Right hip osteoarthritis - patient stable at bedside this morning. Case went to peer to peer and patient denied for [facility]. Discharge home today with health services 2. Appreciate medical management 3. Pain management - [place] 4. DVT prophylaxis - Lovenox; going home with aspirin 81 mg twice a day 30 days 5. GI prophylaxis - senna 6. PT/OT - weightbearing as tolerated with walker and assistance 7. Encourage incentive spirometer use 8. Discharge planning - Plan for discharge home with health services today Time with Patient: Less than 30
--- NOTE | 2022-08-17 09:18 | P.DS ---
Providers Date of admission: 08/14/22 09:08 Expected date of discharge: 08/17/22 Attending physician: Nick Mcdaniel Consults: 08/14/22 08:54 Consult Physician Routine Consulting Provider: Ashley Reese Consult Reason/Comments: Medical management Do you want consulting provider notified?: Yes Primary care physician: Hayes Vogel Hospital Course: Date of admission: 08/14/2022 Date of discharge: 08/17/2022 Admission diagnosis: Left hip osteoarthritis Discharge diagnosis: Same Attending physician: Dr. Mcdaniel Surgical procedures: Left total hip arthroplasty Brief history: Patient is a 87-year-old female with a history of progressive primary left hip osteoarthritis. At this point patient has failed conservative treatment measures and has opted to proceed with a elective left total hip arthroplasty. Hospital course: Details of patient's surgery can be found in operative report. Patient tolerated the procedure well and was subsequently transported to orthopedic floor. Patient's orthopeidc and medical care was provided daily. Patient had daily laboratory tests performed for evaluation of overall blood counts. Patient had daily physical therapy to include strengthening range of motion as well as education with walker ambulation. Patient was treated with Lovenox for their postoperative DVT prophylaxis during their inpatient stay. Patient was noted to have a relatively uneventful postoperative course. Patient reported satisfactory pain control with oral pain medications by postoperative day 3. Patient showed satisfactory progress with physical therapy. Patient moved steadily through the program and had no difficulty meeting the goals by postoperative day 3. Given patient's otherwise satisfactory course and having met physical therapy goals, plan is to discharge patient home with health services on postoperative day 3. Discharge condition/disposition: Patient will be discharged home with health se rvices in stable condition. Discharge medications: Instructions are given on resumption of patient's normal daily medications per primary care recommendation, in addition patient will be prescribed [place]; aspirin 81 mg twice a day 30 days; senna. Orthopedic Discharge Instructions: 1. Wound care and infection precautions, keep incision dry and covered while showering, no lotions, creams, moisturizers. No soaking, pools, hot tubs. Do not scrub over incision. 2. Weight-bear as tolerated with walker / cane until follow-up. 3. Ice and elevate when necessary. Do not exceed 20 minutes per hour with ice pack. 4. Utilize compression sleeve until seen at first follow up appointment. 5. Pain meds and anticoagulants per prescription. 6. Pain medication has potential to cause constipation. Increase oral fluid and fiber intake. Contact primary care provider if you have not had a bowel movement within 48 hours after discharge. 7. No anti-inflammatory medication until discussed at first post operative visit, this including Motrin, Aleve, Mobic, Diclofenac. 8. Follow up in office at 2 weeks postop with Raphael Arias PA-C / Tee Rojas PA-C 9. Follow up with your primary care doctor 7-10 days after discharge. 10. Contact [facility] with any questions, . Keep incision clean, dry, intact. While showering, cover silver foam dressing with Saran wrap. Silver foam dressing may be removed in 7 days, 08/21/2022. Once dressing is removed it is okay to shower directly over incision. Assessment: Left hip osteoarthritis Procedures: Left total hip arthroplasty Patient Condition at Discharge: Good Plan - Discharge Summary Discharge Rx Participant: Yes New Discharge Prescriptions: New HYDROcodone/APAP 5-325MG [[place] 5-325] 1 - 2 tab PO Q6HR PRN #36 tab PRN Reason: Pain Sennosides/Docusate Sodium [Senna Plus 8.6-50 mg Softgel] 1 each PO DAILY #20 capsule Aspirin [Adult Low Dose Aspirin EC] 81 mg PO BID #60 tab No Action lisinopriL [Zestril] 10 mg PO QAM Levothyroxine Sodium 75 mcg PO QAM Acetaminophen [Tylenol] 325 mg PO Q4H PRN PRN Reason: Pain Furosemide [Lasix] 20 mg PO DAILY Potassium Chloride [Klor-Con 10] 10 meq PO BID Fluticasone/Umeclidin/Vilanter [Trelegy Ellipta 100-62.5-25] 1 inhalation INHALATION DAILY Discharge Medication List Acetaminophen [Tylenol] 325 mg PO Q4H PRN 12/28/16 [History] Levothyroxine Sodium 75 mcg PO QAM 12/28/16 [History] lisinopriL [Zestril] 10 mg PO QAM 12/28/16 [History] Furosemide [Lasix] 20 mg PO DAILY 03/09/17 [History] Potassium Chloride [Klor-Con 10] 10 meq PO BID 03/09/17 [History] Fluticasone/Umeclidin/Vilanter [Trelegy Ellipta 100-62.5-25] 1 inhalation INHALATION DAILY 08/11/22 [History] Aspirin [Adult Low Dose Aspirin EC] 81 mg PO BID #60 tab 08/17/22 [Rx] HYDROcodone/APAP 5-325MG [[place] 5-325] 1 - 2 tab PO Q6HR PRN #36 tab 08/17/22 [Rx] Sennosides/Docusate Sodium [Senna Plus 8.6-50 mg Softgel] 1 each PO DAILY #20 capsule 08/17/22 [Rx] Follow up Appointment(s)/Referral(s): [facility] [NON-STAFF] - As Needed (Call [facility] if you would like to set up Meals on Wheels. ) Oj Arias, KAYLIN [PHYSICIAN SPECIALIST ICU] - 08/30/22 3:30 pm Patient Instructions/Handouts: Anterior Hip Replacement (DC) Activity/Diet/Wound Care/Special Instructions: Orthopedic Discharge Instructions: 1. Wound care and infection precautions, keep incision dry and covered while showering, no lotions, creams, moisturizers. No soaking, pools, hot tubs. Do not scrub over incision. 2. Weight-bear as tolerated with walker / cane until follow-up. 3. Ice and elevate when necessary. Do not exceed 20 minutes per hour with ice pack. 4. Utilize compression sleeve until seen at first follow up appointment. 5. Pain meds and anticoagulants per prescription. 6. Pain medication has potential to cause constipation. Increase oral fluid and fiber intake. Contact primary care provider if you have not had a bowel movement within 48 hours after discharge. 7. No anti-inflammatory medication until discussed at first post operative visit, this including Motrin, Aleve, Mobic, Diclofenac. 8. Follow up in office at 2 weeks postop with Raphael Arias PA-C / Tee Rojas PA-C 9. Follow up with your primary care doctor 7-10 days after discharge. 10. Contact [facility] with any questions, . Keep incision clean, dry, intact. While showering, cover silver foam dressing with Saran wrap. Silver foam dressing may be removed in 7 days, 08/21/2022. Once dressing is removed it is okay to shower directly over incision. Discharge/Stand Alone Forms: [facility]
[2022-08-17 11:09] LABS: Basophils # (A) 0.02 X 10*3/uL (0.00-0.10); Basophils % (A) 0.3 %; Eosinophils # (A) 0.08 X 10*3/uL (0.04-0.35); Eosinophils % (A) 1.1 %; HGB 10.4 d/dL (12.0-15.0); Lymphocytes # (A) 0.76 X 10*3/uL (0.90-5.00); Lymphocytes % (A) 10.1 %; MCH 31.9 pg (27.0-32.0); MCHC 31.5 d/dL (32.0-37.0); MCV 101.2 FL (80.0-97.0); Monocytes # (A) 0.64 X 10*3/uL (0.20-1.00); Monocytes % (A) 8.5 %; NRBC Per 100 WBC 0 X 10*3/uL (0.00-0.01); Neutrophils # (A) 5.93 X 10*3/uL (1.80-7.70); Neutrophils % (A) 78.9 %; Platelet Count 140 X 10*3/uL (140-440); RBC 3.26 X 10*6/uL (4.10-5.20); RDW 13.2 % (11.5-14.5); WBC 7.51 X 10*3/uL (4.50-10.00)
[2022-08-17 11:17] LABS: BUN/Creat Ratio 20.64 Ratio (12.00-20.00); Blood Urea Nitrogen 28.9 mg/dL (9.0-27.0); Calcium 8.3 mg/dL (8.7-10.3); Carbon Dioxide 21.4 mmol/L (21.6-31.8); Chloride 106 mmol/L (96-109); Glucose 135 mg/dL (70-110); Potassium 4.8 mmol/L (3.5-5.5); Sodium 139 mmol/L (135-145)
[2022-08-17] MEDS: HYDROcodone/APAP 5-325MG 1 EACH TAB PO PRN (12:01)
--- NOTE | 2022-08-17 22:19 | PN ---
PROGRESS NOTE DATE OF SERVICE: 08/17/2022 SUBJECTIVE: This is an 87-year-old woman who was admitted after left hip arthroplasty, is improving significantly. The patient is apparently planning to return home. No chest pain. No palpitation. OBJECTIVE: VITAL SIGNS: Pulse 83, blood pressure 119/69, respirations 16. CHEST: Clear to auscultation. CARDIOVASCULAR: S1, S2. ABDOMEN: Soft. LEGS: Status post surgery. LABORATORY DATA: Reviewed. ASSESSMENT: 1. Status post left hip arthroplasty. 2. Hypertension. 3. History of degenerative joint disease. 4. Hypothyroidism. 5. Urinary tract infection ruled out. 6. Multiple medical issues. RECOMMENDATIONS: Recommend to continue current medications, continue symptomatic treatment. Otherwise, resume the home medications. DVT prophylaxis per Orthopedic Surgery. Follow with primary physician in the outpatient setting. MMODL / IJN: [id number] /
== END 2022-08-17 14:41 | disposition home health service (06) ==
LOC: OR 05:44 → 4SSUR 09:08
PROVIDERS: ADMIT Orthopaedic Surgery; ATTEND Orthopaedic Surgery
DX: M16.12 Unilateral primary osteoarthritis, left hip (principal); G89.18 Other acute postprocedural pain; I10 Essential (primary) hypertension; E89.0 Postprocedural hypothyroidism; Z79.890 Hormone replacement therapy; Z79.899 Other long term (current) drug therapy
CPT/HCPCS: 94640 ×3; 97116 ×2; 97161; 97535; 97166; 64447; 86900; 86901; 80048 ×2; 85025 ×2; 86850; 81001; 73501; 36415; 27130; G0378 ×4; C1776; J2250; J2370 ×2; J0690 ×2; J2405; J1650 ×3; J3010; J2795; J2704; J1170; J2001

== ENCOUNTER → 2022-09-08 | Outpatient (CLI) | payer MEDICARE ==
--- NOTE | 2022-09-08 15:59 | US ---
EXAMINATION TYPE: US venous doppler duplex LE DATE OF EXAM: 09/08/2022 3:43 PM COMPARISON: US 2017 CLINICAL INDICATION: Female, 87 years old with history of R60.0 EDEMA; No hx of DVT. Patient is on ba by aspirin. Edema. SIDE PERFORMED: Bilateral TECHNIQUE: The lower extremity deep venous system is examined utilizing real time linear array sonog aline with graded compression, doppler sonography and color-flow sonography. VESSELS IMAGED: Common Femoral Vein Deep Femoral Vein Greater Saphenous Vein * Femoral Vein Popliteal Vein Small Saphenous Vein * Proximal Calf Veins (* superficial vessels) Right Leg: No evidence of DVT. Left Leg: No evidence of DVT. IMPRESSION: 1. No acute deep venous thrombosis bilateral lower extremity ultrasound
[2022-09-08 20:12] LABS: ALT 13 U/L (8-44); AST 16 U/L (13-35); Albumin/Globulin Ratio 1.48 Ratio (1.60-3.17); Alkaline Phosphatase 115 U/L (41-126); BUN/Creat Ratio 25.07 Ratio (12.00-20.00); Blood Urea Nitrogen 35.1 mg/dL (9.0-27.0); Calcium 9.6 mg/dL (8.7-10.3); Carbon Dioxide 19.9 mmol/L (21.6-31.8); Chloride 100 mmol/L (96-109); Globulin 2.7 d/dL (1.6-3.3); Glucose 104 mg/dL (70-110); Potassium 5.7 mmol/L (3.5-5.5); Sodium 137 mmol/L (135-145); Total Bilirubin 0.3 mg/dL (0.3-1.2); Total Protein 6.7 d/dL (6.2-8.2); Uric Acid 11.2 mg/dL (2.9-7.7)
[2022-09-08 20:13] LABS: Basophils # (A) 0.05 X 10*3/uL (0.00-0.10); Basophils % (A) 0.8 %; Eosinophils # (A) 0.06 X 10*3/uL (0.04-0.35); HCT 34.3 % (37.2-46.3); HGB 10.8 d/dL (12.0-15.0); Lymphocytes # (A) 1.11 X 10*3/uL (0.90-5.00); Lymphocytes % (A) 18.3 %; MCH 31.2 pg (27.0-32.0); MCHC 31.5 d/dL (32.0-37.0); MCV 99.1 FL (80.0-97.0); Mean Platelet Volume 11.7 FL (9.5-12.2); Monocytes # (A) 0.67 X 10*3/uL (0.20-1.00); NRBC Per 100 WBC 0 X 10*3/uL (0.00-0.01); Neutrophils # (A) 4.06 X 10*3/uL (1.80-7.70); Neutrophils % (A) 66.9 %; Platelet Count 269 X 10*3/uL (140-440); RBC 3.46 X 10*6/uL (4.10-5.20); RDW 12.6 % (11.5-14.5); WBC 6.07 X 10*3/uL (4.50-10.00)
== END | disposition home or self-care (01) ==
LOC: RADUSWWP 15:21
PROVIDERS: ATTEND Family Medicine
DX: L03.119 Cellulitis of unspecified part of limb (principal); R60.0 Localized edema
CPT/HCPCS: 80053; 84550; 85025; 93970